=== PATIENT | female | born 1980 | race American Indian/Alaskan Native ===

== ENCOUNTER → 2020-06-24 10:58 | Outpatient (CLI) | payer BC, SELFPAY ==
[2020-06-24] MEDS: COVID-19 VACC, Ad26(JANSSEN)/PF 0.5 ML IM (11:07)
== END ==
PROVIDERS: Visit Provider Internal Medicine
DX: Z23 Encounter for immunization (principal)
CPT/HCPCS: 0031A; 91303

== ENCOUNTER 2020-07-01 03:28 | Emergency (ER) | payer OTHER, BC, SELFPAY ==
[2020-07-01 03:35] VITALS: BP 157/91; PULSE 80; RESP 18; TEMP 36.6; O2SAT 99
--- NOTE | 2020-07-01 03:54 | ED.GENADULT ---
HPI - General Adult General Chief complaint: Headache Stated complaint: Pain in neck, dizzy Time Seen by Provider: 07/01/20 03:34 Source: patient Mode of arrival: Ambulatory Limitations: no limitations History of Present Illness HPI narrative: Patient is a 39-year-old female here for evaluation of multiple symptoms. She states that the end of last week she received the Enzo and Enzo COVID-19 vaccine. She was traveling home from out of town over the weekend when as she was driving she became lightheaded. She was also having nausea. Was not specifically a vertigo sensation however was difficult for her to specifically defined which she was feeling. She was transported to a hospital where she states that she had a workup and was eventually discharged home. She states that while she was there she had the blood pressure cuff on the left arm where she had the vaccine. She states that it became very tight and she was having some tingling in her hands. She now feels like that the tingling is radiating up to the left side of her neck. It is also on the back of her neck. Is causing left-sided headache. She is having photophobia. Difficult for her to describe with headache feels like. States she normally does not get headaches. It was not a sudden onset. She has not had any fevers. Has tried Tylenol and ibuprofen for the symptoms without any improvement. She does get discomfort when she moves her neck however there is not a specific spot that hurts when she touches it. Related Data Allergies Allergy/AdvReac Type Severity Reaction Status Date / Time No Known Drug Allergies Allergy Verified 07/01/20 03:43 Review of Systems Constitutional Constitutional: Denies fatigue, Denies fever(s) and Reports headache(s) Eyes Eyes: Reports photophobia ENT Ears, Nose, Mouth, and Throat: Reports headache(s), Reports neck pain and Denies sore throat Cardiovascular Cardiovascular: Denies chest pain and Denies dyspnea Respiratory Respiratory: Denies dyspnea Gastrointestinal Gastrointestinal: Denies abdominal pain, Denies change in bowel habits and Reports nausea Genitourinary Genitourinary: Denies dysuria Genitourinary: Denies dysuria Musculoskeletal Musculoskeletal: Denies back pain and Reports neck pain Integumentary/Breasts Skin/Breast: Denies rash Neurologic Neurologic: Denies behavioral changes and Reports headache(s) Psychiatric Psychiatric: Denies behavioral changes Endocrine Endocrine: Denies fatigue Hematologic/Lymphatic On Anticoagulants: No Allergic/Immunologic Allergic/Immunologic: Denies urticaria Patient History Medical History Autoimmune hepatitis Social History Smoking Status: Never smoker Smoking Status: Never smoker alcohol intake frequency: a few times a month Substance Use Type: does not use Exam Initial Vital Signs Initial Vital Signs: Vital Signs Temperature 98 F 07/01/20 03:35 Pulse Rate 80 07/01/20 03:35 Respiratory Rate 18 07/01/20 03:35 Blood Pressure 157/91 H 07/01/20 03:35 Pulse Oximetry 99 07/01/20 03:35 Const General: cooperative Limitations: mental status not altered HENMT Head: normal to inspection and normocephalic Ears: hearing grossly normal bilaterally and TM's normal bilaterally Nose: external nose normal Face and sinus: face symmetric, no erythema and no tenderness Mouth: oral mucosae normal Teeth and gingiva: dentition normal Eyes Visual Carrington: normal visual carrington by confrontation Pupils: PERRL Resp Effort & Inspection: normal respiratory effort Auscultation: clear to auscultation bilaterally Cardio Rate: regular rate Rhythm: regular rhythm GI Inspection: non-distended Palpation: soft Skin Lesions: no lesions Rashes: no rashes Neuro General: patient alert, patient awake and patient oriented x3 Cranial Nerves: CN's II-XI intact bilaterally Cognition: normal cognition Speech: speech normal Sensory Exam: no sensory deficits noted Extrem General: normal to inspection and capillary refill normal Psych Appearance: grossly normal and well kempt Scores GCS [place] coma scale eye opening: Spontaneous [place] coma scale verbal response: Orientated Sisi coma scale motor response: Obey commands Sisi coma scale total score: 15 Course Orders Ordered: ED Orders 07/01/20 03:55 CT angio head and neck Stat 07/01/20 04:05 Basic Metabolic Panel Stat Complete Blood Count AUTO DIFF Stat Test Serum,Qual Stat 07/01/20 04:10 EKG-12 Lead Stat Discontinued Medications Cyclobenzaprine HCl (Cyclobenzaprine 10 Mg Prepack) 1 bottle MISC SEEINSTR ONE Stop: 07/01/20 06:05 Diazepam (Diazepam 5 Mg Tablet) 5 mg PO NOW ONE Stop: 07/01/20 03:55 Last Admin: 07/01/20 04:15 Dose: 5 mg Documented by: CAMPOS Sodium Chloride (Normal Saline 0.9%) 1,000 mls @ 1,000 mls/hr IV BOLUS ONE Stop: 07/01/20 04:53 Last Infusion: 07/01/20 05:24 Dose: 0 mls/hr Documented by: Admin: 07/01/20 04:14 Dose: 1,000 mls/hr Documented by: CAMPOS Ketorolac Tromethamine (Ketorolac 60 Mg/2 Ml Vial) 30 mg IV NOW ONE Stop: 07/01/20 03:55 Last Admin: 07/01/20 04:14 Dose: 30 mg Documented by: CAMPOS Ondansetron HCl (Ondansetron 4 Mg/2 Ml Inj) 4 mg IV NOW ONE Stop: 07/01/20 03:55 Last Admin: 07/01/20 04:18 Dose: 4 mg Documented by: CAMPOS Ondansetron HCl (Ondansetron 4 Mg Odt Prepack) 1 bottle MISC SEEINSTR ONE Stop: 07/01/20 06:05 Vital Signs Vital signs: Vital Signs - 8 hr 07/01/20 03:35 Temperature 98 F Pulse Rate 80 Respiratory Rate 18 Blood Pressure 157/91 H Pulse Oximetry 99 Medical Decision Making Lab Data Lab results reviewed: Yes I reviewed the patient's lab results. Result diagrams: 07/01/20 04:05 07/01/20 04:05 Labs: Lab Results 07/01/20 07/01/20 07/01/20 Range/Units 04:05 04:05 04:05 WBC 7.1 (4.5-11.0) X10^3/uL RBC 3.91 L (4.0-5.2) X10^6/uL Hgb 11.1 L (12.0-16.0) g/dL Hct 33.8 L (36-46) % MCV 86.4 (80-100) fL MCH 28.3 (26-34) PG MCHC 32.7 (30-36) % RDW 14.5 (11.6-14.8) % Plt Count 448 H (150-400) X10^3/uL Neut % (Auto) 59.6 (50-75) % Lymph % (Auto) 30.5 (25-40) % [place] % (Auto) 7.9 (3-14) % Eos % (Auto) 1.3 L (2-4) % Baso % (Auto) 0.7 (0-2) % Neut # (Auto) 4200 (1789-5522) /uL Lymph # (Auto) 2200 (8557-2819) /uL [place] # (Auto) 600 (0-900) /uL Eos # (Auto) 100 (0-450) /uL Baso # (Auto) 100 (0-100) /uL Sodium 137 (137-145) mmol/L Potassium 4.2 (3.4-5.1) mmol/L Chloride 105 (98-107) mmol/L Carbon Dioxide 26 (22-32) mmol/L BUN 13 (7-17) mg/dL Creatinine 0.55 (0.52-1.04) mg/dL Estimated GFR > 60.0 (>60) mL/min BUN/Creatinine Ratio 23.6 H (6-22) Glucose 111 H (70-100) mg/dL Calcium 8.5 (8.4-10.2) mg/dL Serum , Qual Negative (Negative) Imaging Data CTA - brain/neck: Radiologist's Impression: No stenosis dissection or other intracranial or neck vascular findings. ECG Data Attestation: I personally reviewed and interpreted this ECG as follows: Prior ECG tracings: not available for review Interpretation: Sinus rhythm Ventricular rate of 77 Normal axis Normal QRS Normal QTC No ST T wave changes MDM Narrative Medical decision making narrative: The CT a of the head neck was ordered given the vagueness of the patient's symptoms and also the neck pain and which she describes as chest discomfort yesterday. This is also ordered because I could not specifically reproduce some muscle spasm with palpation of her left neck. She has no pinpoint tenderness that would be amendable to a trigger point injection. Other than her headache she is neurovascularly intact. Her CTA of the head neck is very reassuring and unremarkable. Low suspicion for intracranial hemorrhage. No masses. No dissection. Unsure the exact etiology of her symptoms. I cannot specifically say that they are related to the Enzo Enzo vaccine and I cannot specifically states there related to the blood pressure being taken in her left arm. She did feel somewhat better after the medications she was given here in the ER. She was able to localize the discomfort on the back of her neck on the left side. Given this there is a possibility that her symptoms are related to a tension headache. Plan of these for her to continue the ibuprofen and the Tylenol. Will send home with muscle relaxers and also nausea medication. She is new to the area she she was given information with regard to establishing a primary provider. He is given return precautions. She expressed understanding and agreement. Discharge Plan Departure Patient Disposition: Home Clinical Impression: Headache Instructions: DI for Headache Activity Restrictions/Additional Instructions: Your labs today were reassuring. Recommend that you continue with the Tylenol and ibuprofen for your headaches. You can also use massage and heat as this may help your neck discomfort. Use the nausea medication and the muscle relaxers as directed. I also recommend you contact the health resource is coordinator here at the [facility] at [phone]. This individual can help you establish a primary provider. Return to the emergency department for any new or worsening symptoms
--- NOTE | 2020-07-01 03:55 | DI.CT.S_ITS ---
PROCEDURE: CT ANGIO HEAD AND NECK INDICATIONS: Chest pain, neck pain, vertigo, headache TECHNIQUE: Pre-contrast 4.5 mm thick sections acquired from the foramen magnum to the vertex. After the administration of intravenous contrast, 1 mm thick sections acquired from the aortic arch through the [place] of [place]. Post-contrast 4.5 mm thick sections then re-acquired from the foramen magnum to the vertex. 3-dimensional boknniu-fvcfgmvoc-dzwsqoxtgm (MIP) and/or volume rendering reformats were acquired of the central intracranial vasculature and neck separately. COMPARISON: None. FINDINGS: Image quality: Excellent. BRAIN: CSF spaces: Ventricles are normal in size and shape. Basal cisterns are patent. No extra-axial fluid collections. Brain: No midline shift. No intracranial bleeds or masses. Ruth-white matter interface appears intact. Skull and face: Calvarium and facial bones appear intact, without suspicious lesions. Orbits appear normal. Sinuses: Sinuses and mastoids are clear. HEAD CT ANGIOGRAPHY: Anterior circulation: Intracranial internal carotid arteries are normal in size and flow. The flow within the paired anterior cerebral arteries is normal and symmetric. The flow within the middle cerebral arteries is normal and symmetric. The anterior communicating artery is seen. No aneurysms are seen. Posterior circulation: Visualized portions of the vertebral arteries demonstrate normal caliber, and join to form a normal appearing basilar artery. Flow within the posterior cerebral arteries is normal and symmetric. No aneurysms are seen. Dural sinuses demonstrate normal postcontrast enhancement. NECK CT ANGIOGRAPHY: Carotid system: The great vessels demonstrate a conventional anatomy as they arise from the aortic arch. The origins of the common carotid arteries appear patent. The common carotid arteries demonstrate normal caliber and courses. The bifurcation regions are both widely patent. The internal carotid arteries demonstrate normal calibers and courses. Posterior circulation: The origins of the vertebral arteries both appear widely patent. The more superior extracranial portions of both vertebral arteries also demonstrate normal courses and calibers. They join to form a normal appearing basilar artery. Soft tissues: Visualized neck soft tissues demonstrate no suspicious abnormalities. Bones: No suspicious bony lesions. Visualized cervical spine appears normally aligned. IMPRESSION: 1. No acute intracranial disease process. 2. No large vessel occlusion, vascular stenosis, vascular dissection or aneurysm. Any quantitative measurements of stenosis were performed using NASCET criteria. Dictated by: Naty Torrez MD, PhD on 07/01/2020 at 8:06 Approved by: Naty Torrez MD, PhD on 07/01/2020 at 8:12
[2020-07-01] MEDS: KETOROLAC 60 MG/2 ML VIAL 30 MG IV (04:14)
[2020-07-01] MEDS: SODIUM CHLORIDE 0.9% 1,000 ML 1000 ML IV (04:14)
[2020-07-01] MEDS: diazePAM 5 MG TABLET PO (04:15)
[2020-07-01 04:18] LABS: Add Manual Diff / Slide Review NO; Basophils Absolute Auto 100 /uL (0-100); Basophils Percent Auto 0.7 % (0-2); Eosinophils Absolute Auto 100 /uL (0-450); Eosinophils Percent Auto 1.3 % (2-4); Hematocrit 33.8 % (36-46); Hemoglobin 11.1 g/dL (12.0-16.0); Lymphocytes Absolute Auto 2200 /uL (1100-4500); Lymphocytes Percent Auto 30.5 % (25-40); Mean Corpuscular HGB Conc 32.7 % (30-36); Mean Corpuscular Hemoglobin 28.3 PG (26-34); Mean Corpuscular Volume 86.4 fL (80-100); Monocytes Absolute Auto 600 /uL (0-900); Monocytes Percent Auto 7.9 % (3-14); Neutrophils Absolute Auto 4200 /uL (1500-7000); Neutrophils Percent Auto 59.6 % (50-75); Platelet Count 448 X10^3/uL (150-400); Red Blood Cell Count 3.91 X10^6/uL (4.0-5.2); Red Cell Distribution Width 14.5 % (11.6-14.8); White Blood Cell Count 7.1 X10^3/uL (4.5-11.0)
[2020-07-01] MEDS: ONDANSETRON 4 MG/2 ML INJ IV (04:18)
[2020-07-01 04:25] LABS: BUN Creatinine Ratio 23.6 (6-22); Blood Urea Nitrogen 13 mg/dL (7-17); Calcium 8.5 mg/dL (8.4-10.2); Carbon Dioxide 26 mmol/L (22-32); Chloride 105 mmol/L (98-107); Estimated Glomerular Filt Rate > 60.0 mL/min (>60); Glucose 111 mg/dL (70-100); HEMOLYSIS < 15 (0-50); Potassium 4.2 mmol/L (3.4-5.1); Sodium 137 mmol/L (137-145)
[2020-07-01 04:32] LABS: Pregnancy Test Serum,Qual Negative (Negative)
[2020-07-01] MEDS: ONDANSETRON 4 MG ODT PREPACK 1 BOTTLE MISC (06:29)
[2020-07-01] MEDS: CYCLOBENZAPRINE 10 MG PREPACK 1 BOTTLE MISC (06:29)
[2020-07-01 06:42] VITALS: BP 128/69; PULSE 76; RESP 20; O2SAT 100
== END 2020-07-01 06:35 | disposition home or self-care (01) ==
PROVIDERS: Emergency Provider Emergency Medicine
DX: R51.9 Headache, unspecified (principal); R11.0 Nausea; M54.2 Cervicalgia; R07.9 Chest pain, unspecified; R20.2 Paresthesia of skin
CPT/HCPCS: 36415; 70496; 70498; 80048; 84703; 85025; 93005; 93010; 96361; 96374; 96375; 99284; J1885; J2405; Q9967

== ENCOUNTER 2022-01-24 18:56 | Emergency (ER) | payer OTHER, BC, SELFPAY ==
[2022-01-24] VITALS (9 sets, daily range): BP systolic 140–158; BP diastolic 72–87; PULSE 78–101; RESP 16–22; TEMP 36.9; O2SAT 99–100
[2022-01-24 19:44] LABS: Alanine Aminotransferase 34 IU/L (<35); Albumin 4.5 g/dL (3.5-5.0); Alkaline Phosphatase 95 U/L (38-126); Aspartate Aminotransferase 32 IU/L (14-36); BUN Creatinine Ratio 15.9 (6-22); Bilirubin Total 0.3 mg/dL (0.2-1.3); Blood Urea Nitrogen 10 mg/dL (7-17); Calcium 8.4 mg/dL (8.4-10.2); Carbon Dioxide 26 mmol/L (22-32); Chloride 104 mmol/L (98-107); Estimated Glomerular Filt Rate > 60 mL/min (>60); Globulin 4.6 g/dL (1.7-4.1); Glucose 101 mg/dL (70-100); HEMOLYSIS < 15 (0-50); Lipase 106 U/L (23-300); Sodium 139 mmol/L (137-145); Total Protein 9.1 g/dL (6.3-8.2)
[2022-01-24 20:10] LABS: Add Manual Diff / Slide Review NO; Basophils Absolute Auto 0 /uL (0-100); Basophils Percent Auto 0.4 % (0-2); Eosinophils Absolute Auto 100 /uL (0-450); Eosinophils Percent Auto 1.1 % (2-4); Hematocrit 29.2 % (36-46); Hemoglobin 9.6 g/dL (12.0-16.0); Lymphocytes Absolute Auto 1900 /uL (1100-4500); Lymphocytes Percent Auto 23.9 % (25-40); Mean Corpuscular HGB Conc 32.7 % (30-36); Mean Corpuscular Hemoglobin 23.6 PG (26-34); Mean Corpuscular Volume 72.2 fL (80-100); Monocytes Absolute Auto 500 /uL (0-900); Monocytes Percent Auto 6.7 % (3-14); Neutrophils Absolute Auto 5400 /uL (1500-7000); Neutrophils Percent Auto 67.9 % (50-75); Platelet Count 657 X10^3/uL (150-400); Red Blood Cell Count 4.05 X10^6/uL (4.0-5.2); White Blood Cell Count 7.9 X10^3/uL (4.5-11.0)
[2022-01-24 20:11] LABS: Influenza A - CEPHEID Flu A NEGATIVE (NEGATIVE); Influenza B - CEPHEID Flu B NEGATIVE (NEGATIVE)
[2022-01-24 20:19] LABS: COVID-19 CEPHEID 4-PLEX PCR Negative (Negative)
--- NOTE | 2022-01-24 21:31 | ED_ITS ---
HPI - Nausea/Vomiting/Diarrhea General Chief complaint: Nausea/Vomiting/Diarrhea Stated complaint: Dizzy/diarrhea/cramping Time Seen by Provider: 01/24/22 21:31 Source: patient Mode of arrival: Ambulatory History of Present Illness HPI Narrative: Patient is a 41-year-old female who presents with diarrhea and dizziness ongoing for 1 day. She said she was in her normal state of health yesterday. She has had multiple episodes of diarrhea today nonbloody she thinks at least 10. She denies any recent travel no recent antibiotics. She has no abdominal pain. She says sometimes when she lays down she feels like the room is spinning she currently has a position of comfort. She denies any a chest pain or palpitations Related Data Previous Rx's Medication Instructions Recorded meclizine 25 mg tablet 25 mg PO TID PRN dizziness #10 tabs 01/25/22 ondansetron 4 mg disintegrating 4 mg PO Q8H PRN nausea and 01/25/22 tablet vomiting #10 tabs Allergies Allergy/AdvReac Type Severity Reaction Status Date / Time No Known Drug Allergies Allergy Verified 07/01/20 03:43 Review of Systems Review of Systems Narrative: GENERAL: Denies chills, fatigue, malaise, fever, sweats, travel HEENT: Denies sinus pain, ear pain, sore throat, difficulty swallowing, neck pain RESPIRATORY: Denies dyspnea, cough, wheezing, hemoptysis, sputum. CARDIOVASCULAR: Denies chest pain, palpitations, orthopnea, edema GASTROINTESTINAL: Diarrhea, see HPI : Denies dysuria, frequency, incontinence, hematuria, urinary retention, flank pain. MUSCULOSKELETAL: Denies weakness, joint pain, or bony pain SKIN: No rash, no erythema, no pruritus NEUROLOGIC: Mildly dizzy, see HPI PSYCHIATRIC: No concerning psychosocial issues. 12 point review of systems is negative except for those stated above and HPI Patient History Medical History Autoimmune hepatitis Social History Smoking Status: Never smoker Smoking Status: Never smoker alcohol intake frequency: a few times a month Substance Use Type: does not use Exam Initial Vital Signs Initial Vital Signs: Vital Signs Temperature 98.5 F 01/24/22 19:07 Pulse Rate 89 01/24/22 19:07 Respiratory Rate 22 11/08/22 19:07 Blood Pressure 144/85 H 01/24/22 19:07 Pulse Oximetry 99 01/24/22 19:07 Oxygen Delivery Method 01/24/22 19:07 GENERAL: Alert pleasant well-appearing 41-year-old female no acute distress HEENT: Head atraumatic,EOMI, pupils reactive, face symmetric, moist mucous membranes CARDIOVASCULAR: Regular rate and rhythm without murmurs, rubs or gallops. RESPIRATORY: Breath sounds equal bilaterally, no wheezes rales or rhonchi. ABDOMEN: Soft, nontender. Normoactive bowel sounds all 4 quadrants. No guarding or rebound. RECTAL: No gross blood no stool no hemorrhoids : No CVA tenderness EXTREMITIES: Normal range of motion, no clubbing or edema. Neurovascularly intact NEUROLOGICAL: Alert and oriented x4.Normal gait and speech. Cranial nerves II through XII grossly intact. Good gvqhul-[id number], good ilac-mz-rdjp, strength e qual bilaterally, no dysarthria or aphasia, sensation in tact to soft touch bilaterally, no visual changes, no facial droop SKIN: Warm, dry, no laceration, no petechiae, no rashes or lesions. Course Orders Ordered: ED Orders 01/24/22 22:00 Urine Culture Stat Urine Microscopic Stat Discontinued Medications Sodium Chloride (Normal Saline 0.9%) 1,000 mls @ 1,000 mls/hr IV BOLUS ONE Stop: 01/24/22 22:36 Last Infusion: 01/25/22 00:28 Dose: 0 mls/hr Documented By: Admin: 01/24/22 22:13 Dose: 1,000 mls/hr Documented By: ROBINSON Meclizine HCl (Meclizine Hcl 12.5 Mg Tablet) 25 mg PO NOW ONE Stop: 01/25/22 01:23 Last Admin: 01/25/22 01:33 Dose: 25 mg Documented By: ROBINSON Ondansetron HCl (Ondansetron 4 Mg/2 Ml Inj) 4 mg IV NOW ONE Stop: 01/25/22 01:23 Last Admin: 01/25/22 01:33 Dose: 4 mg Documented By: ROBINSON Vital Signs Vital signs: Vital Signs - 8 hr 01/24/22 21:24 01/24/22 21:30 01/24/22 21:30 Pulse Rate 101 H 83 Respiratory Rate 19 16 Blood Pressure 141/72 H Pulse Oximetry 100 100 Oxygen Delivery Method 01/24/22 22:01 01/24/22 22:30 01/24/22 22:40 Pulse Rate 94 H 84 82 Respiratory Rate 21 21 Blood Pressure Pulse Oximetry 99 100 100 Oxygen Delivery Method Room Air 01/24/22 22:40 01/24/22 23:00 01/24/22 23:00 Pulse Rate 78 Respiratory Rate 17 Blood Pressure 143/87 H 158/78 H Pulse Oximetry 100 Oxygen Delivery Method 01/24/22 23:30 01/24/22 23:31 01/24/22 23:31 Pulse Rate 78 78 Respiratory Rate 16 16 Blood Pressure 140/73 Pulse Oximetry 100 100 Oxygen Delivery Method 01/25/22 00:00 01/25/22 00:00 01/25/22 00:30 Pulse Rate 77 79 Respiratory Rate 16 17 Blood Pressure 144/74 H Pulse Oximetry 100 100 Oxygen Delivery Method 01/25/22 00:31 01/25/22 00:31 01/25/22 01:00 Pulse Rate 79 Respiratory Rate 18 Blood Pressure 132/61 125/88 Pulse Oximetry 100 Oxygen Delivery Method 01/25/22 01:00 Pulse Rate 79 Respiratory Rate 19 Blood Pressure Pulse Oximetry 99 Oxygen Delivery Method MDM - Nausea/Vomiting/Diarrhea Lab Data Result diagrams: 01/24/22 19:20 01/24/22 19:20 Labs: Lab Results 01/24/22 01/24/22 01/24/22 Range/Units 19:20 19:20 19:20 WBC 7.9 (4.5-11.0) X10^3/uL RBC 4.05 (4.0-5.2) X10^6/uL Hgb 9.6 L (12.0-16.0) g/dL Hct 29.2 L (36-46) % MCV 72.2 L (80-100) fL MCH 23.6 L (26-34) PG MCHC 32.7 (30-36) % RDW 18.0 H (11.6-14.8) % Plt Count 657 H (150-400) X10^3/uL Neut % (Auto) 67.9 (50-75) % Lymph % (Auto) 23.9 L (25-40) % [place] % (Auto) 6.7 (3-14) % Eos % (Auto) 1.1 L (2-4) % Baso % (Auto) 0.4 (0-2) % Neut # (Auto) 5400 (7565-9414) /uL Lymph # (Auto) 1900 (4027-8133) /uL [place] # (Auto) 500 (0-900) /uL Eos # (Auto) 100 (0-450) /uL Baso # (Auto) 0 (0-100) /uL Sodium 139 (137-145) mmol/L Potassium 4.0 (3.4-5.1) mmol/L Chloride 104 (98-107) mmol/L Carbon Dioxide 26 (22-32) mmol/L BUN 10 (7-17) mg/dL Creatinine 0.63 (0.52-1.04) mg/dL Estimated GFR > 60 (>60) mL/min BUN/Creatinine Ratio 15.9 (6-22) Glucose 101 H (70-100) mg/dL Calcium 8.4 (8.4-10.2) mg/dL Total Bilirubin 0.3 (0.2-1.3) mg/dL AST 32 (14-36) IU/L ALT 34 (<35) IU/L Alkaline Phosphatase 95 (38-126) U/L Total Protein 9.1 H (6.3-8.2) g/dL Albumin 4.5 (3.5-5.0) g/dL Globulin 4.6 H (1.7-4.1) g/dL Albumin/Globulin Ratio 1.0 (1.0-2.8) Lipase 106 (23-300) U/L Urine RBC (0-5/HPF) Urine WBC (0-5/HPF) Ur Squamous Epith Cells (0-5/HPF) Urine Bacteria (None) Micro UA Comment SARS-CoV-2 (PCR) Negative (Negative) Influenza A (RT-PCR) Flu a negative (NEGATIVE) Influenza B (RT-PCR) Flu b negative (NEGATIVE) 01/24/22 Range/Units 22:00 WBC (4.5-11.0) X10^3/uL RBC (4.0-5.2) X10^6/uL Hgb (12.0-16.0) g/dL Hct (36-46) % MCV (80-100) fL MCH (26-34) PG MCHC (30-36) % RDW (11.6-14.8) % Plt Count (150-400) X10^3/uL Neut % (Auto) (50-75) % Lymph % (Auto) (25-40) % [place] % (Auto) (3-14) % Eos % (Auto) (2-4) % Baso % (Auto) (0-2) % Neut # (Auto) (2766-7594) /uL Lymph # (Auto) (3626-9084) /uL [place] # (Auto) (0-900) /uL Eos # (Auto) (0-450) /uL Baso # (Auto) (0-100) /uL Sodium (137-145) mmol/L Potassium (3.4-5.1) mmol/L Chloride (98-107) mmol/L Carbon Dioxide (22-32) mmol/L BUN (7-17) mg/dL Creatinine (0.52-1.04) mg/dL Estimated GFR (>60) mL/min BUN/Creatinine Ratio (6-22) Glucose (70-100) mg/dL Calcium (8.4-10.2) mg/dL Total Bilirubin (0.2-1.3) mg/dL AST (14-36) IU/L ALT (<35) IU/L Alkaline Phosphatase (38-126) U/L Total Protein (6.3-8.2) g/dL Albumin (3.5-5.0) g/dL Globulin (1.7-4.1) g/dL Albumin/Globulin Ratio (1.0-2.8) Lipase (23-300) U/L Urine RBC 0-1/hpf (0-5/HPF) Urine WBC None seen (0-5/HPF) Ur Squamous Epith Cells 0-1 /hpf (0-5/HPF) Urine Bacteria None seen (None) Micro UA Comment * SARS-CoV-2 (PCR) (Negative) Influenza A (RT-PCR) (NEGATIVE) Influenza B (RT-PCR) (NEGATIVE) Point of Care Testing Test Results Negative Urine Dip Bedside Urine Glucose Negative Bedside Urine Bilirubin - Negative Bedside Urine Ketone - Negative Urine Specific [place] 1.005 Bedside Urine Occult Blood +/- Bedside Urine pH 6.0 Bedside Urine Protein - Negative Bedside Urine Urobilinogen - Negative Bedside Urine Nitrite - Negative Bedside Urine Leukocytes - Negative Esterase ECG Data Interpretation: Sinus rhythm rate 84 MT interval 140 QRS 80 QTC [address] changes similar to previous EKG MDM Narrative Medical decision making narrative: Patient has no focal deficits with her dizziness. She has had multiple episodes of diarrhea today she area is found to have anemia with a hemoglobin of 9.6. She has no blood on her rectal exam she denies seeing any black stool or bright red blood. Probable chronic I do not think that her anemia is causing her mild dizziness. 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 Probably a vertigo. She overall appears comfortable she has no focal deficit she has no nystagmus at this time I do not think head CT is indicated. Patient actually had a it CT angio 07/01/2020 for vertigo like symptoms and it was negative. She is given meclizine and Zofran and a L of fluid. Discharge Plan Departure Patient Disposition: Home Clinical Impression: Diarrhea, Anemia, Vertigo Instructions: Diarrhea, DI for Vertigo Activity Restrictions/Additional Instructions: *You have been diagnosed with diarrhea, vertigo, anemia *What to do: He may have a slight case of vertigo. Please rest and take it easy. Medication may or may not help. 3 stay hydrated and drink fluids. You will need to have her blood levels rechecked this week or next week. Hemoglobin 9.6, hematocrit 29.2 *Continue to take medications as directed Meclizine 25-50 mg every 8 hours if needed for dizziness Zofran 4 mg every 8 hours if needed for nausea or vomiting. *Follow up with your primary care provider in 2-3 days or call [phone] *Return to ER if you should have persistent dizziness, black stools vomiting or any new, worsening or concerning symptoms Prescriptions: New meclizine 25 mg tablet 25 mg PO TID PRN (Reason: dizziness) Qty: 10 0RF ondansetron 4 mg tablet,disintegrating 4 mg PO Q8H PRN (Reason: nausea and vomiting) Qty: 10 0RF Visit Report Forms: Patient Portal/API
[2022-01-24] MEDS: SODIUM CHLORIDE 0.9% 1,000 ML 1000 ML IV (22:13)
[2022-01-24 22:58] LABS: Bacteria Urine None Seen; RBC Urine 0-1/HPF (0-5/HPF); Squamous Epithelial Cell Urine 0-1 /HPF (0-5/HPF); WBC Urine None Seen (0-5/HPF)
--- NOTE | 2022-01-24 23:20 | PC.NURSE ---
Report received from ALISON Escalante - assumed care of pt at this time - resting quietly in NAD - no needs voiced - PWD - no N/V
[2022-01-25] VITALS: BP 144/74; PULSE 77; RESP 16; O2SAT 100
--- NOTE | 2022-01-25 | PC.NURSE ---
Resting quietly in NAD - no needs voiced - PWD with respirations equal and unlabored bilaterally - no needs voiced - Alert and oriented - nausea without vomiting
[2022-01-25 00:30] VITALS: PULSE 79; RESP 17; O2SAT 100
--- NOTE | 2022-01-25 00:30 | PC.NURSE ---
No changes in pt status at this time
[2022-01-25 00:31] VITALS: BP 132/61; PULSE 79; RESP 18; O2SAT 100
[2022-01-25 01:00] VITALS: BP 125/88; PULSE 79; RESP 19; O2SAT 99
--- NOTE | 2022-01-25 01:00 | PC.NURSE ---
States that she is having some nausea without vomiting - states that she hasn't vomited prior but has had the nausea - states that she is having a sensation of spinning - states that when she layed down she felt like the room was spinning and she needed to hold on to something - states that it it was a weird sensation and that she has never experienced anything like it - states that it gets worse with changes of positions - MD chaparro
--- NOTE | 2022-01-25 01:15 | PC.NURSE ---
Ambulatory to the bathroom with steady gait
--- NOTE | 2022-01-25 01:30 | PC.NURSE ---
MD at bedside to speak with patient
[2022-01-25] MEDS: MECLIZINE HCL 12.5 MG TABLET 25 MG PO (01:33)
[2022-01-25] MEDS: ONDANSETRON 4 MG/2 ML INJ IV (01:33)
== END 2022-01-25 01:50 | disposition home or self-care (01) ==
PROVIDERS: Emergency Provider Emergency Medicine
DX: R19.7 Diarrhea, unspecified (principal); D64.9 Anemia, unspecified; R42 Dizziness and giddiness; Z20.822 Contact with and (suspected) exposure to COVID-19
CPT/HCPCS: 36415; 80053; 81003; 81015; 81025; 83690; 85025; 87086; 87635; 93005; 93010; 96361; 96374; 99284; C9803; J2405

== ENCOUNTER 2022-04-05 15:26 | Emergency (ER) | payer OTHER, BC, SELFPAY ==
[2022-04-05 15:31] VITALS: BP 168/90; PULSE 101; RESP 20; TEMP 36.8; O2SAT 99; BMI 35.9
== END 2022-04-05 17:28 | disposition left against medical advice (07) ==
PROVIDERS: Emergency Provider Emergency Medicine
CPT/HCPCS: 99281

== ENCOUNTER → 2022-04-14 15:15 | Outpatient (CLI) | payer OTHER, BC, SELFPAY ==
[2022-04-16 18:43] LABS: C difficie Toxins A and B, EIA Negative (Negative)
== END ==
PROVIDERS: Referring Provider Physician Assistant Medical; Visit Provider Physician Assistant Medical
DX: A09 Infectious gastroenteritis and colitis, unspecified (principal); K75.4 Autoimmune hepatitis
CPT/HCPCS: 87045; 87324; 87899

== ENCOUNTER → 2023-01-29 07:44 | Outpatient (CLI) | payer OTHER, BC, SELFPAY ==
--- NOTE | 2023-01-29 07:47 | DI.NM.S_ITS ---
PROCEDURE: NM EXERCISE TREADMILL NON NUC COMPARISON: None. INDICATIONS: Dyspnea. FINDINGS: Rest ECG sinus rhythm. Fabian protocol 6:01, maximum heart rate 165 bpm (92% peak predicted), maximum blood pressure 156/90, 7.0 METS, BENNIE +40%. Exercise ECG sinus tachycardia, no ST segment changes or arrhythmias. The patient complained of chest burning with inspiration. IMPRESSION: Low risk study. No evidence of exercise-induced ischemia or arrhythmia. Normal hemodynamic response. Atypical, pleuritic chest pain with exertion. Reduced exercise capacity. Dictated by: Cande Hernandez D.O. on 01/29/2023 at 17:58 Approved by: Cande Hernandez D.O. on 01/29/2023 at 18:00
--- NOTE | 2023-01-29 07:47 | DI.ECHO.S_ITS ---
[place]---------+ [facility] +---------+ : : [address] : : : : [id number] : : : : Phone: [phone]---------+ Echocardiogram Report + + :Name: JUANITO GRANADOS Study Date: 01/29/2023 Height: 61 in : :[facility] ReadingLocation: Weight: 292 lb : : Gender: Female BSA: 2.2 m2 : :: 1980 Age: 42 yrs BP: 130/87 mmHg: :Reason For Study: CHEST DISCOMFORT : :Ordering Physician: YELENA, : :JENNY Performed By: Shellie Swartz : :Referring: JENNY BROWN : + + Interpretation Summary 1) Normal left ventricular thickness, size, wall motion, and systolic function (EF 55-60%). 2) Normal right ventricular size and function. 3) There is mild to moderate mitral regurgitation. 4) No prior Echo available for comparison. Procedure: A two-dimensional transthoracic echocardiogram with color flow and Doppler was performed. The study quality was technically adequate. There is no prior echocardiogram noted for this patient. The patient was in sinus rhythm with heart rates between 72-81 bpm during the exam. Left Ventricle: The left ventricle is normal in size and wall thickness. The ejection fraction is estimated to be 55-60%. Left ventricular systolic function appears normal without focal wall motion abnormalities. Right Ventricle: The right ventricle is normal in size and function. Atria: The left atrial size is normal. Right atrial size is normal. There is no Doppler evidence for an interatrial shunt. Mitral Valve: The mitral valve leaflets are slightly calcified. There is mild to moderate mitral regurgitation. The mitral regurgitant jet is eccentrically directed. Aortic Valve: The aortic valve is trileaflet. The aortic valve opens well. There is no aortic valve stenosis. No aortic regurgitation is present. Tricuspid Valve: The tricuspid valve is normal in structure and function. There is mild tricuspid regurgitation. Pulmonary artery pressures cannot be estimated because of the lack of a measurable TR jet velocity. Pulmonic Valve: The pulmonic valve leaflets are thin and pliable; valve motion is normal. There is a trace or physiologic amount of pulmonic regurgitation. Great Vessels: The aortic root is normal size. The dimensions of the ascending aorta are normal. The IVC is of normal diameter and collapses greater than 50% with a sniff. This suggests a low right atrial pressure of 3 mm Hg. Pericardium/ Pleura There is no pericardial effusion. There is no pleural effusion. MMode/2D Measurements & Calculations LVIDd: 5.1 cm LVOT diam: 2.0 cm LVIDs: 3.3 cm Ao root diam: 2.8 cm FS: 35.3 % asc Aorta Diam: 2.8 cm EPSS: 0.82 cm Ao Arch Diam (Prox Trans): 2.6 cm IVSd: 0.71 cm LVPWd: 0.64 cm LV woods. diameter/BSA (cm/m^2): 2.3 LV sys. diameter/BSA (cm/m^2): 1.5 LA A2 area: 16.9 cm2 RA long axis: 5.2 cm LA A4 area: 15.7 cm2 RA area: 14.3 cm2 LA length (vol): 5.4 cm RA vol: 33.5 ml LA vol: 41.9 ml RA : 15.1 ml/m2 LA vol index: 18.9 ml/m2 IVC diam: 1.9 cm RVD1 (basal): 3.2 cm RVD2 (mid): 2.6 cm TAPSE: 1.9 cm Doppler Measurements & Calculations Ao V2 max: 178.3 cm/sec LVOT Max Agus: 102.1 cm/sec Ao V2 mean: 123.9 cm/sec LV V1 max P.2 mmHg Ao max P.7 mmHg LV V1 VTI: 20.6 cm Ao mean P.8 mmHg JOSE(I,D): 1.8 cm2 Ao V2 VTI: 37.7 cm JOSE(V,D): 1.9 cm2 sev ratio: 0.55 JOSE indexed to BSA (cm^2/m^2): 0.80 MV E max agus: 87.7 cm/sec PA V2 max: 170.8 cm/sec MV A max agus: 60.3 cm/sec PA V2 mean: 110.4 cm/sec MV E/A: 1.5 PA mean P.6 mmHg Med Peak E' Agus: 11.1 cm/sec PA pr(Accel): 29.3 mmHg E/E' med: 7.9 Lat Peak E' Agus: 15.5 cm/sec E/E' lat: 5.6 E/e' average: 6.8 MV dec time: 0.20 sec SV(LVOT): 66.8 ml Reading Physician:05:[id number] PM
== END ==
PROVIDERS: PCP Physician Assistant; Referring Provider Internal Medicine Cardiovascular Disease; Visit Provider Internal Medicine Cardiovascular Disease
DX: I08.1 Rheumatic disorders of both mitral and tricuspid valves (principal); R07.89 Other chest pain; R06.09 Other forms of dyspnea
CPT/HCPCS: 93017; 93306

== ENCOUNTER → 2024-04-13 10:32 | Outpatient (CLI) | payer OTHER, BC, SELFPAY ==
[2024-04-13 11:23] LABS: Influenza A - CEPHEID Flu A NEGATIVE (NEGATIVE); Influenza B - CEPHEID Flu B NEGATIVE (NEGATIVE); Respiratory Syncytial Virus POSITIVE (Negative)
[2024-04-13 11:25] LABS: COVID-19 CEPHEID 4-PLEX PCR Negative (Negative)
== END ==
PROVIDERS: PCP Physician Assistant; Visit Provider Physician Assistant Surgical
DX: J02.9 Acute pharyngitis, unspecified (principal); R05.1 Acute cough
CPT/HCPCS: 0241U; 87070

== ENCOUNTER → 2024-04-13 10:39 | Outpatient (CLI) | payer OTHER, BC, SELFPAY ==
--- NOTE | 2024-04-13 10:42 | DI.RAD.S_ITS ---
PROCEDURE: XR CHEST 2V INDICATIONS: Cough, chest congestion TECHNIQUE: 2 views of the chest were acquired. COMPARISON: None. FINDINGS: Surgical changes and devices: None. Lungs and pleura: Lungs are clear. No pleural effusions or pneumothorax. Mediastinum: Mediastinal contours are normal. Heart size is normal. Bones and chest wall: No suspicious bony abnormalities. Soft tissues appear unremarkable. IMPRESSION: No acute cardiothoracic process. Dictated by: Jhoan Mott M.D. on 04/13/2024 at 11:24 Approved by: Jhoan Mott M.D. on 04/13/2024 at 11:25
== END ==
PROVIDERS: PCP Physician Assistant; Referring Provider Physician Assistant Surgical; Visit Provider Physician Assistant Surgical
DX: J02.9 Acute pharyngitis, unspecified (principal); R05.1 Acute cough
CPT/HCPCS: 0241U; 71046; 87070